=== PATIENT | male | born 1940 | race Caucasian/White ===

== ENCOUNTER 2017-10-02 09:34 | Outpatient (CLI) | payer MEDICARE, OTHER ==
[2017-10-02] VITALS (24 sets, daily range): BP systolic 65–182; BP diastolic 38–86
== END 2017-10-02 23:59 | disposition home or self-care (01) ==
LOC: CARD DIAG 09:34
PROVIDERS: ATTEND Internal Medicine Cardiovascular Disease
DX: R42 Dizziness and giddiness (principal)
CPT/HCPCS: 93660

== ENCOUNTER 2018-01-21 10:28 | Emergency (ER) | payer MEDICARE, OTHER ==
[~2018-01-21] VITALS: Ht 185.4 cm; Wt 87.4 kg
[2018-01-21 10:55] LABS: BASOPHILS % (AUTO) 0.7 % (0-1); EOSINOPHILS # (AUTO) 0.3 X10'3 (0-0.9); EOSINOPHILS % (AUTO) 4.5 % (0-6); HEMOGLOBIN 13.6 g/dl (14.0-17.9); LYMPHOCYTES # (AUTO) 1.3 X10'3 (1.1-4.8); LYMPHOCYTES % (AUTO) 22.4 % (21-51); MEAN CORPUSCULAR HEMOGLOBIN 32.2 PG (27.0-31.0); MEAN CORPUSCULAR VOLUME 94.7 FL (78-98); MEAN PLATELET VOLUME 7.9 FL (7.4-10.4); MONOCYTES # (AUTO) 0.5 X10'3 (0-0.9); NEUTROPHILS # (AUTO) 3.6 X10'3 (1.8-7.7); NEUTROPHILS % (AUTO) 64.4 % (42-75); PLATELET COUNT 236 X10'3 (140-440); RED BLOOD COUNT 4.22 X10'6 (4.70-6.10); RED CELL DISTRIBUTION WIDTH 15.8 % (11.5-14.5); WHITE BLOOD COUNT 5.6 X10'3 (4.5-11.0)
[2018-01-21 11:05] LABS: PARTIAL THROMBOPLASTIN TIME 24 SECONDS (22-32); PROTHROMBIN TIME 9.9 SECONDS (9.0-12.0)
[2018-01-21 11:10] LABS: ALANINE AMINOTRANSFERASE 14 U/L (12-78); ALBUMIN 3.8 G/DL (3.4-5.0); ALKALINE PHOSPHATASE 55 IU/L (46-116); ANION GAP 5 (8-16); ASPARTATE AMINO TRANSFERASE 13 U/L (10-37); BILIRUBIN,TOTAL 1.5 MG/DL (0.1-1.0); BLOOD UREA NITROGEN 21 MG/DL (7-18); BUN/CREATININE RATIO 18.3 (5.4-32.0); CALCIUM 8.9 MG/DL (8.5-10.1); CHLORIDE 107 MMOL/L (99-107); CREATININE 1.15 MG/DL (0.60-1.10); GLUCOSE 120 MG/DL (70-104); POTASSIUM 4.7 MMOL/L (3.5-5.1); SODIUM 143 MMOL/L (135-145); TOTAL PROTEIN 7.5 G/DL (6.4-8.2); eGFR 62 ML/MIN
[2018-01-21] MEDS ORDERED: normal saline 1000ML IV soln IVB ONE (11:20)
[2018-01-21] MEDS ORDERED: iohexol 350MG/ML 100ml bottle IV ONE (11:27)
[2018-01-21] MEDS ORDERED: ASPI-1265 PO (13:39)
[2018-01-21] MEDS ORDERED: CHOL20002 PO (13:39)
[2018-01-21] MEDS ORDERED: ASCO500C15 PO (13:39)
[2018-01-21] MEDS ORDERED: METO25TA6 PO (13:39)
[2018-01-21 13:58] VITALS: BP 165/79
== END 2018-01-21 13:59 | disposition home or self-care (01) ==
LOC: ER 10:28
DX: R07.89 Other chest pain (principal); I10 Essential (primary) hypertension; Z98.890 Other specified postprocedural states; Z79.82 Long term (current) use of aspirin; Z79.899 Other long term (current) drug therapy
CPT/HCPCS: 36415; 71045; 71275; 80053; 84484; 85025; 85610; 85730; 93005; 99285; J7030; Q9967

== ENCOUNTER 2022-03-21 08:15 | Day surgery (SDC) | payer MEDICARE, OTHER ==
[~2022-03-21] VITALS: Ht 185.4 cm; Wt 85.1 kg
[~2022-03-21 08:15] MED LIST: ASCO500C18 PO; ASPI-1265 PO; CHOL20002 PO; LOP25T PO
[2022-03-21 08:40] VITALS: BP 168/101
[2022-03-21] MEDS ORDERED: [UNRECOGNIZED DRUG - OTHER] PO (08:58)
[2022-03-21] MEDS ORDERED: FLO0.4C PO (08:58)
[2022-03-21] MEDS ORDERED: Lupron (08:58)
[2022-03-21] MEDS ORDERED: [UNRECOGNIZED DRUG - OTHER] (08:58)
[2022-03-21] MEDS ORDERED: LIDOcaine 1% 30ml preserv. free vial SQ STA (09:04)
[2022-03-21 10:07] VITALS: BP 163/52
[2022-03-21 10:22] VITALS: BP 174/69
[2022-03-21 10:30] VITALS: BP 141/80
== END 2022-03-21 10:40 | disposition home or self-care (01) ==
LOC: SSTAY O 08:15
PROVIDERS: ATTEND Radiology Vascular & Interventional Radiology
DX: R22.1 Localized swelling, mass and lump, neck (principal); I10 Essential (primary) hypertension; Z79.82 Long term (current) use of aspirin; Z79.899 Other long term (current) drug therapy; Z98.890 Other specified postprocedural states
CPT/HCPCS: 20206; 76942; 88184; 88185; A6449